=== PATIENT | female | born 1990 | race Caucasian/White ===

== ENCOUNTER 2019-12-12 07:47 | Inpatient (IN) | payer BC ==
[2019-12-12] MEDS ORDERED: Lactated Ringers 1000 ML Bag* 1,000 ML IV ONE ×2 (08:19→14:25)
[2019-12-12] MEDS ORDERED: Buffered Lidocaine 1% SYRIN* 1 ML/SYRINGE INTRADERM ONE (08:19)
--- NOTE | 2019-12-12 08:31 | PN ---
Progress Note - Progress Note Date of Service: 12/12/19 Note: S: Reports UCs began overnight. Originally around 10 mins apart, now 3-5 mins apart. Uncomfortable with UCs, breathing through them. Denies LOF O: B/P: 135/84, P: 61, R: 18 FHR: baseline 145, moderate variability, no accels, occasional variable decels UCs: q 2-4 min, by palpation. Not tracing well on toco VE: 2/80/-2, posterior. Membranes intact. A: IUP at 39 5/7 weeks Category II FHR, doubt metabolic acidemia P: Admit to inpatient for category II FHR Encourage position changes, may try IV fluid bolus Reassess PRN Anticipate SVB
[2019-12-12] MEDS ORDERED: Lactated Ringers 1000 ML Bag* 1,000 ML IV SCH ×3 (09:00→20:00)
[2019-12-12 09:15] LABS: Urine Benzodiazepine Screen None Detected (None Detect); Urine Opiates Screen None Detected (None Detect)
--- NOTE | 2019-12-12 09:16 | HP ---
General Information - Reason for Visit Contractions - General Information Maternal Age: 29 Grav: 1 Para: 0 SAB: 0 IEA: 0 Estimated Due Date: 12/14/19 Determined By: LMP Gestational Age in Weeks/Days: 39 5/7 Maternal Blood Type and Rh: A Negative - Results this Serology/RPR Result: Non-Reactive Rubella Result: Non-Immune HBsAg Result: Negative HIV Result: Negative GBS Culture Result: Negative Past Medical History Delivery History: See Records Delivery History Comment: No prior deliveries Pertinent Past Medical History: Non-Contributory Pertinent Past Surgical History: None Pertinent Family History: See Records Family History Comment: Father: hypertension, melanoma, hashimotos thyroiditis - Antepartal Records Antepartal Records: Reviewed, Complicated by: - Rh negative status, rubella equivocal status Review of Systems Constitutional: Uncomfortable CV Complaint: No Respiratory: Shortness of Breath: No Gastrointestinal: No Nausea/Vomiting, Normal Bowel Movement Genitourinary: No Dysuria, No Bleeding, No Leaking Fluid Musculoskeletal: Contractions Neurological: No Headache, No Visual Changes Movement: Normal Exam B/P: 135/84, P: 63, R: 20, T: 98.4 - Measurements Height: 5 ft 2 in Weight: 211 lb Weight in lbs: 211.270403 Body Mass Index (BMI): 38.5 - Exam Breast: Breast Exam Deferred CVA: No CVA Tenderness Extremities: No Edema Heart: Normal Rhythm/Heart Sounds HEENT: No Significant Findings Lungs: Clear Bilaterally Reflexes: DTR 2+ Thyroid: No Thyromegaly - Abdominal Exam Abdomen Exam: Non-Tender, Fundal Height Consistent with Dates - Ultrasound/Biophysical Profile Ultrasound Status: Not Done Targeted Exam Findings See L&D Outpatient Visit Provider Note for Findings: N/A Estimated Weight: 8.5 lb by elyssa Cervical Exam: 2cm Effacement: 80% Station: -2 Presenting Part: Vertex Membrane Status: Intact Bleeding/Discharge: None EFM Findings - External Monitor Findings Baseline Heart Rate: 145 External Monitor Findings: Variability Moderate, Baseline Stable, Variable or Late Deceleration Pattern Present Contractions: Regular, Moderate, 45-90 Seconds Contraction Frequency: 2-4 min, not tracing well on toco Assessment/Plan - Assessment A: IUP at 39 5/7 weeks Category II FHR, doubt metabolic acidemia GBS negative P: Admit to inpatient. Reposition, give fluids, promote wellbeing Reassess PRN Anticipate SVB - Plan Plan: Admit - Anticipate Vaginal Delivery
[2019-12-12] MEDS ORDERED: Lidocaine 2.5%/Prilocain 2.5%* 5 GM TUBE ONE (10:53)
[2019-12-12] MEDS ORDERED: Lidocaine 2.5%/Prilocain 2.5%* 5 GM TUBE TOPICAL ONE (11:15)
--- NOTE | 2019-12-12 11:44 | PN ---
Progress Note - Progress Note Date of Service: 12/12/19 Note: S: Vocalizing with contractions, partner at bedside, involved. O: B/P: 135/84, P: 68, R: 20, T: 98.4 FHR: baseline 145, moderate variability, no accels, occasional variable deceleration (with less than 50% of contractions) UCs: q 2-3 mins by palpation, not tracing well on toco, especially with maternal position changes VE: 3.5/90/-2 A: IUP at 39 5/7 weeks Category II FHR, doubt metabolic acidemia Early labor P: Order for Emla placed; pt with two poor IV start attempts and significant aversion to needles Will try to place better IV in right hand or forearm Reassess PRN Continue position changes to promote labor progress Anticipate SVB
[2019-12-12 13:35] LABS: ABS Basophils 0.1 10^3/ul (0-0.2); ABS Lymphocytes 1.8 10^3/ul (1.0-4.8); ABS Monocytes 0.4 10^3/ul (0-0.8); ABS Neutrophils 10.7 10^3/ul (1.5-7.7); Eosinophil % 0.1 %; Hematocrit 35 % (35-47); Hemoglobin 12.2 g/dL (12.0-16.0); Lymphocyte % 13.4 %; Mean Corpuscular HGB Conc 35 g/dL (31-36); Mean Corpuscular Hemoglobin 30 pg (27-31); Mean Corpuscular Volume 86 fL (80-97); Mean Platelet Volume 9.4 fL (7.4-10.4); Platelet Count 174 10^3/uL (150-450); Red Blood Count 4.07 10^6 /uL (3.70-4.87); Red Cell Distribution Width 14 % (10-15)
[2019-12-12] MEDS ORDERED: OBEPIDURAL* 250 ML EPIDURAL ONE (13:47)
[2019-12-12] MEDS ORDERED: Bupivacaine 0.25% SDV PF* 10 ML VIAL INJ ONE (13:49)
--- NOTE | 2019-12-12 13:49 | PN ---
Progress Note - Progress Note Date of Service: 12/12/19 Note: S: Reports feeling exhausted, requesting epidural. O: B/P 133/86, P: 76, R: 20, T: 98.0 FHR: baseline 150, moderate variability, +accels, occ variable decels (with <50% of UCs) UCs: q 2-4 min, moderate to palpation. VE: 5/90/-1. Bloody show A: IUP at 39 5/7 weeks category II FHR, doubt metabolic acidemia Active labor P: Dr. Vicky shea, on his way down Reassess PRN Anticipate SVB
[2019-12-12] MEDS ORDERED: Lidocaine 1% MPF ** 5 ML VIAL ONE (14:25)
[2019-12-12] MEDS ORDERED: Famotidine TAB* 20 MG PO PRN (14:25)
[2019-12-12] MEDS ORDERED: Sodium Citrate/Citric Acid* 15 ML UDC PO PRN (14:25)
[2019-12-12] MEDS ORDERED: Phenylephrine 40 MCG/ML SYRINGE IV PUSH PRN ×2 (14:25)
[2019-12-12] MEDS ORDERED: OBEPIDURAL* 250 ML EPIDURAL SCH (15:00)
[2019-12-12] MEDS ORDERED: Terbutaline INJ* 1 MG/ML VIAL ONE (17:32)
[2019-12-12] MEDS ORDERED: Chloroprocaine 3%* 20 ML VIAL ONE (17:43)
--- NOTE | 2019-12-12 17:43 | PN ---
Progress Note - Progress Note Date of Service: 12/12/19 Note: S: Comfortable with epidural. O: B/P: 131/72, P: 72, R: 18, T: 98.1 FHR: baseline 145, minimal variability, repetitive variable decelerations, some to 70s/80s UCs: q 2-4, IUPC in place VE: /-1, AROM to MSAF at 1640. A: IUP at 39 5/7 weeks Category II FHR, remote to delivery. No improvement in tracing with position changes, fluid bolus, O2 Active labor P: Consult with Bj Ribera MD, recommend cearean delivery PARQ discussion with Brenda and Johnathan, they agree Anesthesiology paged, message left for line installer repairer
[2019-12-12] MEDS ORDERED: Sodium Citrate/Citric Acid* 15 ML UDC ONE (17:44)
[2019-12-12] MEDS ORDERED: ceFAZolin 2 GM PREMIX in ORs 2 GM/50 ML BAG ONE (17:48)
[2019-12-12] MEDS ORDERED: ceFOXitin 2 GM IVPREMIX* 2 GM/50 ML BAG IVPB ONE (17:54)
[2019-12-12] MEDS ORDERED: OXYTOCIN* 10 UNITS/ML 1 ML VIAL ONE (18:25)
[2019-12-12] MEDS ORDERED: Morphine PF AMP (0.5MG/ML)* 5 MG/10 ML AMP ONE (18:40)
[2019-12-12] MEDS ORDERED: Ketorolac INJ* 30 MG/ML 1 ML VIAL ONE (18:45)
[2019-12-12] MEDS ORDERED: fentaNYL* 50 MCG/ML 2 ML VIAL (100 MCG VIAL) ONE (18:49)
[2019-12-12] MEDS ORDERED: Acetaminophen TAB* 325 MG PO PRN (18:59)
[2019-12-12] MEDS ORDERED: Naloxone* 0.4 MG/ML 1 ML VIAL IV PRN (18:59)
[2019-12-12] MEDS ORDERED: Naloxone* 2 MG in NS 0.9% 250 ML* 250 ML IV PRN (18:59)
[2019-12-12] MEDS ORDERED: Ondansetron INJ* 2 MG/ML VIAL IV PRN (18:59)
[2019-12-12] MEDS ORDERED: oxyCODONE TAB* 5 MG TAB PO PRN (18:59)
[2019-12-12] MEDS ORDERED: Nalbuphine* 10 MG/ML 1 ML VIAL IV PRN (18:59)
[2019-12-12] MEDS ORDERED: Glycerin ADULT SUPP PR PRN (19:24)
[2019-12-12] MEDS ORDERED: Dibucaine 1% 28.35 GM TUBE PR PRN (19:24)
[2019-12-12] MEDS ORDERED: Witch Hazel PAD* JAR TOPICAL PRN (19:24)
[2019-12-12] MEDS ORDERED: EPHEDrine (Pressors)* 50 MG/ML VIAL ONE (19:34)
[2019-12-12] MEDS: Ketorolac INJ* 30 MG/ML 1 ML VIAL IV PRN (19:51)
[2019-12-13 06:24] LABS: ABS Basophils 0.1 10^3/ul (0-0.2); ABS Lymphocytes 2.8 10^3/ul (1.0-4.8); ABS Monocytes 0.9 10^3/ul (0-0.8); ABS Neutrophils 11.2 10^3/ul (1.5-7.7); Eosinophil % 0.2 %; Hematocrit 27 % (35-47); Hemoglobin 9.8 g/dL (12.0-16.0); Lymphocyte % 18.9 %; Mean Corpuscular HGB Conc 36 g/dL (31-36); Mean Corpuscular Hemoglobin 31 pg (27-31); Mean Corpuscular Volume 87 fL (80-97); Mean Platelet Volume 8.8 fL (7.4-10.4); Platelet Count 154 10^3/uL (150-450); Red Blood Count 3.16 10^6 /uL (3.70-4.87); Red Cell Distribution Width 14 % (10-15); White Blood Count 15.1 10^3/uL (3.5-10.8)
[2019-12-13] MEDS: Docusate CAP* 100 MG PO SCH ×4 (08:26→19:14)
[2019-12-13] MEDS: Ferrous Gluconate TAB* 324 MG TAB PO SCH ×2 (08:26→19:14)
[2019-12-13] MEDS: Ketorolac INJ* 30 MG/ML 1 ML VIAL IV PRN ×2 (08:26→17:34)
[2019-12-13] MEDS: Simethicone TAB* 80 MG TAB.CHEW PO SCH ×5 (08:26→19:14)
[2019-12-13] MEDS ORDERED: oxyCODONE TAB* 5 MG TAB PO PRN (11:01)
[2019-12-13] MEDS ORDERED: Zolpidem TAB* 5 MG PO PRN (11:01)
[2019-12-13] MEDS: Acetaminophen TAB* 325 MG PO PRN ×2 (12:11→19:14)
[2019-12-13] MEDS: Ibuprofen TAB* 600 MG PO PRN (18:08)
[2019-12-13] MEDS: oxyCODONE TAB* 5 MG TAB PO PRN (19:15)
[2019-12-14] MEDS: Acetaminophen TAB* 325 MG PO PRN ×4 (02:53→18:37)
[2019-12-14] MEDS: oxyCODONE TAB* 5 MG TAB PO PRN (02:53)
[2019-12-14] MEDS: Docusate CAP* 100 MG PO SCH ×3 (08:30→21:41)
[2019-12-14] MEDS: Ibuprofen TAB* 600 MG PO PRN ×3 (08:30→21:41)
[2019-12-14] MEDS: Ferrous Gluconate TAB* 324 MG TAB PO SCH ×2 (08:30→21:41)
[2019-12-14] MEDS: Simethicone TAB* 80 MG TAB.CHEW PO SCH ×4 (08:30→21:41)
[2019-12-14] MEDS: Omeprazole CAP (NF) 20 MG CAP.DR PO SCH (08:31)
[2019-12-14] MEDS ORDERED: RHO D Immune Globulin (HUMAN)* 300 MCG = 1,500 I.U. INJ IM ONE (15:28)
[2019-12-14] MEDS ORDERED: Measles, Mumps,Rubella VACC* 0.5 ML/VIAL SUBCUT ONE (16:00)
[2019-12-15] MEDS: Ibuprofen TAB* 600 MG PO PRN ×2 (05:09→11:50)
[2019-12-15] MEDS: Acetaminophen TAB* 325 MG PO PRN ×2 (05:10→11:50)
[2019-12-15] MEDS: Ferrous Gluconate TAB* 324 MG TAB PO SCH (07:55)
[2019-12-15] MEDS: Simethicone TAB* 80 MG TAB.CHEW PO SCH ×2 (07:55→11:51)
[2019-12-15] MEDS: Docusate CAP* 100 MG PO SCH (07:55)
[2019-12-15] MEDS: Omeprazole CAP (NF) 20 MG CAP.DR PO SCH (07:55)
[2019-12-15 08:19] VITALS: BP 117/69
--- NOTE | 2019-12-16 13:25 | OP ---
OPERATIVE REPORT: DATE OF OPERATION: 12/12/19 DATE OF : 89 SURGEON: Bj Ribera MD TOOL HONING MACHINE SET UP OPERATOR: Joselyn Corrales CNM ANESTHESIA: Epidural. PRE-OP DIAGNOSES: at 39 weeks, in labor, with persistent category 2 tracing and meconium-s tained fluid. POST-OP DIAGNOSES: at 39 weeks, in labor, with persistent category 2 tracing and meconium- stained fluid. OPERATIVE PROCEDURE: Primary low transverse section. ESTIMATED BLOOD LOSS: 600 cc. SPECIMEN SENT TO PATHOLOGY: Cord blood. FLUIDS: She received 1500 cc of IV crystalloid fluid. URINE OUTPUT: 400 cc of clear urine. FINDINGS: Delivery of a male with nuchal cord x2 over meconium fluid, with weight of 6 pounds 2 ounces and Apgars of 9 and 9. The placenta was grossly intact with a 3-vessel cord noted. The ut erus, adnexa, bowel, and bladder were all within normal limits and there were no complications. DESCRIPTION OF PROCEDURE: The patient was taken to the operating room where she was identified. She was placed on the operating table where an epidural anesthetic was obtained without difficulty. She was then placed in the supine position with a leftward tilt, prepped and draped in normal sterile fa shion. A Pfannenstiel skin incision was made with a knife and carried through to underlying layer of fascia. The fascia was then nicked in the midline and extended laterally with curved Sanchez scissors. The fascia was then grasped superiorly and inferiorly with Lindsey clamps and dissected off sharply f rom the rectus muscle. The rectus muscle was in the midline bluntly. The peritoneum was i dentified, grasped with pickups, entered sharply with Metzenbaum scissors and extended superiorly and inferiorly sharply. A bladder blade was inserted into the patient's abdomen and a bladder flap was then created. The bladder blade was then removed and an Segundo retractor was placed into the patient 's abdomen. A low transverse uterine incision was then made with a knife and extended laterally with bandage scissors. The amniotic sac was ruptured. The infant's head was then grasped and delivered atraumatically. Nuchal cord x2 was then reduced and the rest of the infant's body was then delivered. The cord was clamped and cut, and the infant was handed off to awaiting master sheet clerk. Cord bloods were obtained. The placenta was removed manually. The uterus was then cleaned of all clot and debri s using moist laparotomy sponges. All the sponges were removed from the patient's uterus and abdomen . The uterine incision was then closed using 0 Polysorb suture in a running locked fashion with a se cond imbricating layer of 0 Polysorb suture with good hemostasis noted. The pelvis was then irrigate d with normal saline. Irrigation fluid was then suctioned. The clot and debris were then removed wit h moist laparotomy sponges. All the sponges were removed from the patient's abdomen as well, as well as the Segundo retractor and the uterine incision was hemostatic. I then closed the peritoneum using 3-0 Polysorb suture in a running fashion. The fascia was closed using 0 Polysorb suture in a runnin g fashion and the skin was closed with a 4-0 Monocryl subcuticular stitch. The patient tolerated the procedure well. Sponge, lap, and needle counts were correct x2. She was then transferred to the re covery room area in stable condition. [id number]/[facility] #: [id number]
== END 2019-12-15 13:02 | disposition home or self-care (01) | DRG 540 ==
LOC: MCHOBOUT 07:47 → MCHOB 09:11
PROVIDERS: ADMIT Midwife; ATTEND Obstetrics & Gynecology
PROC: 10907ZC Drainage of Amniotic Fluid, Therapeutic from Products of Conception, Via Natural or Artificial Opening (ICD-10-PCS; 2019-12-12)
PROC: 10D00Z1 Extraction of Products of Conception, Low, Open Approach (ICD-10-PCS; principal; 2019-12-12 18:00)
DX: O76 Abnormality in fetal heart rate and rhythm complicating labor and delivery (principal); O77.0 Labor and delivery complicated by meconium in amniotic fluid; O69.81X0 Labor and delivery complicated by cord around neck, without compression, not applicable or unspecified; O68 Labor and delivery complicated by abnormality of fetal acid-base balance; O90.81 Anemia of the puerperium; D64.9 Anemia, unspecified; Z3A.39 39 weeks gestation of pregnancy; Z37.0 Single live birth
CPT/HCPCS: 36415; 80307; 85025; 85461; 86850; 86900; 86901; 88720; 90707; 92587; A9270-GY; G0480; J0690; J1885; J2400; J2590; J2790; J3010; J3105; J3490